=== PATIENT | female | born 1960 | race Caucasian/White ===

== ENCOUNTER 2018-07-21 10:37 | Emergency (ER) | payer BC ==
[~2018-07-21] VITALS: Ht 157.5 cm; Wt 70.0 kg
[~2018-07-21 10:37] MED LIST: AMBIEN5 MG PO; AMOXICILLIN500 MG OR; IBUPROFEN600 MG PO; LISINOPRIL20 M1 PO; MULTI 501 PO; NAPROSYN500 MG OR; NO MEDS; PRAVASTATIN SOD20 MG PO; ZOLOFT50 MG PO
[2018-07-21] MEDS ORDERED: SIMVASTATIN10 MG PO (10:58)
[2018-07-21] MEDS ORDERED: AMLODIPINE BESY10 MG PO (10:59)
[2018-07-21] MEDS ORDERED: TRAMADOL HCL50 MG PO (10:59)
[2018-07-21] MEDS ORDERED: EFFEXOR37.5 MG PO (10:59)
[2018-07-21] MEDS ORDERED: TORADOL PO (11:39)
[2018-07-21] MEDS ORDERED: ULTRAM50 M1 PO (11:39)
[2018-07-21 11:50] VITALS: BP 152/83
== END 2018-07-21 11:50 | disposition home or self-care (01) | DRG 566 ==
LOC: ED 10:37
DX: M77.32 Calcaneal spur, left foot (principal); I10 Essential (primary) hypertension; F41.9 Anxiety disorder, unspecified; E78.5 Hyperlipidemia, unspecified; F17.210 Nicotine dependence, cigarettes, uncomplicated

== ENCOUNTER 2023-03-28 08:41 | Emergency (ER) | payer BC ==
[~2023-03-28] VITALS: Ht 157.5 cm; Wt 73.0 kg
[~2023-03-28 08:41] MED LIST changes: +AMLODIPINE BESY10 MG PO; +EFFEXOR37.5 MG PO; +SIMVASTATIN10 MG PO; +TORADOL PO; +TRAMADOL HCL50 MG PO; +ULTRAM50 M1 PO
[2023-03-28 10:52] VITALS: BP 159/101
== END 2023-03-28 10:50 | disposition home or self-care (01) | DRG 556 ==
LOC: ED 08:41
DX: M79.671 Pain in right foot (principal); I49.3 Ventricular premature depolarization; I10 Essential (primary) hypertension; F41.9 Anxiety disorder, unspecified; E78.5 Hyperlipidemia, unspecified; F17.200 Nicotine dependence, unspecified, uncomplicated